=== PATIENT | female | born 2000 | race Caucasian/White ===

== ENCOUNTER 2019-02-24 08:54 | Outpatient (CLI) | payer BC ==
--- NOTE | 2019-02-24 10:37 | ULT ---
Pelvic ultrasound: 02/24/2019 COMPARISON: None HISTORY: 18-year-old female with pelvic pain TECHNIQUE: Multiplanar grayscale sonographic imaging of the pelvis obtained. The ovaries are assessed with color flow and and spectral analysis/Doppler interrogation FINDINGS: The uterus is retroverted. There is small volume free fluid in the pelvis. Uterus measures approximately 5.9 x 3.2 x 2.9 cm. Endometrial stripe is estimated at 5 mm, within nor mal limits. Right ovary could not be visualized on this examination. Left ovary measures 1.3 x 2.2 x 1.4 cm in demonstrates normal blood flow without evidence for mass. IMPRESSION: No acute findings. Right ovary nonvisualized.
--- NOTE | 2019-02-24 11:53 | ULT ---
ULTRASOUND ABDOMEN: Date: 02/24/19 HISTORY: Abdominal pain. FINDINGS: The liver, spleen, pancreas, kidneys, and visualized portions of the aorta and IVC appear normal. The re is echogenic sludge and mobile echogenic debris in the gallbladder without shadowing gallstones, g allbladder wall thickening, or pericholecystic fluid. The common duct measures 3.0 mm in diameter. No free fluid is seen. IMPRESSION: Gallbladder sludge. POS: [facility]
== END 2019-02-24 08:55 | disposition home or self-care (01) ==
LOC: BICULT 08:54
PROVIDERS: ATTEND Internal Medicine
DX: R10.2 Pelvic and perineal pain (principal); R10.9 Unspecified abdominal pain; K82.8 Other specified diseases of gallbladder
CPT/HCPCS: 76700; 76856